=== PATIENT | female | born 1975 | race Caucasian/White ===

== ENCOUNTER 2017-10-30 08:16 | Emergency (ER) | payer OTHER ==
[2017-10-30] MEDS ORDERED: SODIUM CHLORIDE 0.9% 1000 ML INFUS.BAG IV ONE (08:34)
[2017-10-30] MEDS ORDERED: ONDANSETRON 4 MG/2 ML VIAL IVPUSH ONE (08:34)
[2017-10-30] MEDS ORDERED: ACETAMINOPHEN 1000 MG/100 ML VIAL (NON FORMULARY) IVPB ONE (08:34)
[2017-10-30 08:39] VITALS: BP 135/92; PULSE 90; TEMP 98.1; BMI 24.9
[2017-10-30] MEDS ORDERED: ONDANSETRON 4 MG/2 ML VIAL ONE (08:43)
[2017-10-30] MEDS ORDERED: ACETAMINOPHEN INJECTION 100 ML IVPB ONE (08:43)
[2017-10-30 09:07] LABS: PH,URINE 6.5 (4.5-8); URINE APPEARANCE Cloudy; URINE BILIRUBIN Negative (NEGATIVE); URINE BLOOD 3+ (NEGATIVE); URINE COLOR YELLOW; URINE GLUCOSE (UA) Negative (NEGATIVE); URINE KETONE Negative (NEGATIVE); URINE LEUK ESTERASE 2+ (NEGATIVE); URINE NITRITE Positive (NEGATIVE); URINE PROTEIN 2+ (NEGATIVE); URINE UROBILINOGEN 0.2 (0.2-1.0)
[2017-10-30 09:23] LABS: EPI CELLS FEW /HPF; URINE BACTERIA MANY /hpf (NEGATIVE); URINE RBC >100 /hpf (0-3); URINE WBC >100 (0-5)
[2017-10-30 09:27] LABS: BASO % 0.5 % (0-2.0); EOS % 3.7 % (0-4.5); HEMATOCRIT 34.2 % (32.4-45.2); HEMOGLOBIN 11.3 GM/dl (10.7-15.3); LYMPH % 9.2 % (8-40); MCH 26.2 pg (25.7-33.7); MEAN CELL VOLUME 79.3 fl (80-96); MEAN PLT VOLUME 8.4 fl (7.5-11.1); MONO % 5.4 % (3.8-10.2); NEUT % 81.2 % (42.8-82.8); PLATELET COUNT 350 K/MM3 (134-434); RBC 4.31 M/mm3 (3.60-5.2); RDW 15.3 % (11.6-15.6); WHITE BLOOD COUNT 14.3 K/mm3 (4.0-10.8)
[2017-10-30 09:38] LABS: ANION GAP 8 (8-16); BLOOD UREA NITROGEN 10 mg/dl (7-18); CALCIUM 8.9 mg/dl (8.4-10.2); CHLORIDE 103 mmol/L (98-107); CO2 23 mmol/L (22-28); GLUCOSE,RANDOM 86 mg/dl (74-106); POTASSIUM 4.3 mmol/L (3.5-5.1); SODIUM 134 mmol/L (136-145)
--- NOTE | 2017-10-30 09:50 | PDOC ---
History of Present Illness - General Chief Complaint: Urinary Problem Stated Complaint: uti Time Seen by Provider: 10/30/17 08:24 - History of Present Illness Initial Comments: 10/30/17 09:54 Chief complaint dysuria, UTI, back pain History of present illness: 41 years oldpast medical history presents to the emergency department with three-day history of dysuria low back pain. Symptoms are moderate persistent constant no exacerbating or alleviating factors. Patient now also with subjective fever chills nausea one episode of vomiting last night and worsening upper back pain Previous history of kidney stone in the past Past History - Past Medical History Allergies/Adverse Reactions: Allergies Allergy/AdvReac Type Severity Reaction Status Date / Time aspirin Allergy Severe Difficulty Verified 10/30/17 08:17 Breathing diclofenac Allergy Severe Difficulty Verified 10/30/17 08:17 Breathing sulfur dioxide Allergy Severe Difficulty Verified 10/30/17 08:17 Breathing Home Medications: Ambulatory Orders Amoxicillin 10/30/17 Cephalexin [Keflex] 500 mg PO TID #42 capsule 10/30/17 Phenazopyridine HCl [Pyridium -] 100 mg PO PC #6 tablet 10/30/17 Asthma: No Cancer: No Cardiac Disorders: No COPD: No Diabetes: No HTN: No Seizures: No Thyroid Disease: No - Reproductive History (#): 2 Para: 2 - Suicide/Smoking/Psychosocial Hx Smoking History: Never smoked Have you smoked in the past 12 months: No Information on smoking cessation initiated: No Hx Alcohol Use: No Drug/Substance Use Hx: No Substance Use Type: None Hx Substance Use Treatment: No Review of Systems - Review of Systems Comments:: 10/30/17 09:54 ROS: A complete review of 10 out of 10 review of systems is taken and is negative apart from what is previously mentioned below and in the HPI. *Physical Exam - Vital Signs Last Vital Signs Temp Pulse Resp BP Pulse Ox 98.1 F 90 20 135/92 100 10/30/17 08:17 10/30/17 08:17 10/30/17 08:17 10/30/17 08:17 10/30/17 08:17 - Physical Exam Comments: 10/30/17 09:54 Vitals: Triage Vital signs reviewed General Appearance: no acute distress, well nourished well developed, Head: Atraumatic, Neck: Supple;No Nucal rigidity Chest Wall: Nontender Cardiac: Regular rate and rhythym, no murmurs, no rubs, no gallops, Lungs: Clear to auscultation bilateral, good air movement bilaterally, Abdomen: Soft, non distended, normal bowel sounds, non tender to palpation Back: Left CVA TTP Extremities: Full range of motion to all extremities, no cyanosis, clubbing, or edema Skin: Warm and dry, no rashes or lesions, no rash, no petechiae Psych: normal mood, normal affect ED Treatment Course - LABORATORY CBC & Chemistry Diagram: 10/30/17 08:33 10/30/17 09:00 - ADDITIONAL ORDERS Additional order review: Laboratory Results 10/30/17 10/30/17 08:38 08:38 Urine Color Yellow Urine Appearance Cloudy Urine pH 6.5 Ur Specific Helix 1.025 Urine Protein 2+ H Urine Glucose (UA) Negative Urine Ketones Negative Urine Blood 3+ H Urine Nitrite Positive Urine Bilirubin Negative Urine Urobilinogen 0.2 Ur Leukocyte Esterase 2+ H Urine RBC >100 Urine WBC >100 Ur Epithelial Cells Few Urine Bacteria Many Urine HCG, Qual Negative 10/30/17 08:33 RBC 4.31 MCV 79.3 L MCHC 33.0 RDW 15.3 MPV 8.4 Neutrophils % 81.2 Lymphocytes % 9.2 Monocytes % 5.4 Eosinophils % 3.7 Basophils % 0.5 - Medications Given in the ED: ED Medications Discontinued Medications Generic Name Dose Route Start Last Admin Trade Name Freq PRN Reason Stop Dose Admin Acetaminophen 1,000 mg 10/30/17 08:34 10/30/17 08:57 Ofirmev Injection - IVPB 10/30/17 08:35 1,000 mg ONCE ONE Administration Ondansetron HCl 4 mg 10/30/17 08:34 10/30/17 08:57 Zofran Injection IVPUSH 10/30/17 08:35 4 mg ONCE ONE Administration Sodium Chloride 1,000 ml 10/30/17 08:34 10/30/17 08:57 Normal Saline - IV 10/30/17 08:35 1,000 ml ONCE ONE Administration *DC/Admit/Observation/Transfer Diagnosis at time of Disposition: Cystitis - Discharge Dispostion Disposition: HOME Condition at time of disposition: Stable Admit: No - Prescriptions Prescriptions: Cephalexin [Keflex] 500 mg PO TID #42 capsule Phenazopyridine HCl [Pyridium -] 100 mg PO PC #6 tablet - Referrals - Patient Instructions Printed Discharge Instructions: Acute Cystitis Additional Instructions: Take Keflex as prescribed. Take Pyridium as prescribed. Drink plenty of fluids. Follow-up with your primary care provider in 1-2 days. Return to the emergency department [facility] for any fever severe back pain vomiting or for any concerns. - Post Discharge Activity
[2017-10-30 09:51] LABS: CREATININE < 0.8 mg/dl (0.6-1.3)
== END 2017-10-30 11:40 | disposition home or self-care (01) ==
LOC: FER 08:16
PROC: 3E033NZ Introduction of Analgesics, Hypnotics, Sedatives into Peripheral Vein, Percutaneous Approach (ICD-10-PCS; principal; 2017-10-30)
PROC: 3E033GC Introduction of Other Therapeutic Substance into Peripheral Vein, Percutaneous Approach (ICD-10-PCS; 2017-10-30)
PROC: 3E0337Z Introduction of Electrolytic and Water Balance Substance into Peripheral Vein, Percutaneous Approach (ICD-10-PCS; 2017-10-30)
DX: N30.90 Cystitis, unspecified without hematuria (principal)
CPT/HCPCS: 36415; 74177-TC; 80048; 81003; 81015; 84703; 85025; 87040; 87086; 96361; 96374; 96375; 99283-25; J0131; J7030

== ENCOUNTER 2023-05-10 04:55 | Day surgery (SDC) | payer OTHER ==
[2023-05-08 12:18] VITALS: BMI 27.1
[2023-05-10] MEDS ORDERED: ceFAZolin SODIUM 1 GM VIAL IVPB ONE (11:06)
[2023-05-10] MEDS ORDERED: FENTANYL CITRATE/PF 50 MCG/ML VIAL ONE ×2 (11:15→12:31)
[2023-05-10] MEDS ORDERED: MIDAZOLAM HCL 2 MG/2 ML SINGLE DOSE VIAL ONE (11:16)
[2023-05-10] MEDS ORDERED: ACETAMINOPHEN 325 MG TABLET (FP) PO PRN (11:58)
[2023-05-10] MEDS ORDERED: oxyCODONE HCL 5 MG TABLET PO PRN (11:58)
[2023-05-10] MEDS ORDERED: ONDANSETRON 4 MG/2 ML VIAL IVPUSH PRN (12:01)
[2023-05-10] MEDS ORDERED: LACTATED RINGERS SOLUTION 1,000 ML IV SCH (12:15)
[2023-05-10 14:35] VITALS: RESP 18
[2023-05-10 16:17] VITALS: BP 117/64; PULSE 65; TEMP 97.8
== END 2023-05-10 15:35 | disposition home or self-care (01) ==
LOC: JASU-SURG 04:55
PROVIDERS: ATTEND Obstetrics & Gynecology
PROC: 0UDB8ZZ Extraction of Endometrium, Via Natural or Artificial Opening Endoscopic (ICD-10-PCS; principal; 2023-05-10 14:00)
DX: N93.9 Abnormal uterine and vaginal bleeding, unspecified (principal)
CPT/HCPCS: 81025; 88305-TC; 94760

== ENCOUNTER 2025-04-06 09:19 | Emergency (ER) | payer OTHER ==
[2025-04-06 09:27] VITALS: BP 114/70; PULSE 76; RESP 18; TEMP 98.4; BMI 24.9
[2025-04-06] MEDS: IBUPROFEN 400 MG TABLET (FP) PO ONE (10:06)
[2025-04-06] MEDS: LIDOCAINE 5% TOPICAL PATCH TP ONE (10:07)
[2025-04-06] MEDS ORDERED: LIDOCAINE PATCH REMOVAL MC ONE (22:00)
== END 2025-04-06 10:55 | disposition home or self-care (01) ==
LOC: FER 09:19
DX: M54.6 Pain in thoracic spine (principal); X50.0XXA Overexertion from strenuous movement or load, initial encounter
CPT/HCPCS: 99283-25